=== PATIENT | female | born 1970 | race African-American/Black ===

== ENCOUNTER 2024-06-26 00:16 | Inpatient (IN) | payer SELFPAY ==
[~2024-06-26] VITALS: Ht 167.6 cm; Wt 76.8 kg
[2024-06-26 00:28] VITALS: O2SAT 100
[2024-06-26 01:51] LABS: BASOPHILS % 0.8 % (0.0-2.0); EOSINOPHILS % 1.5 % (0.0-5.0); HEMATOCRIT. 42.3 % (36.0-48.0); HEMOGLOBIN. 14.2 g/dL (12.0-16.0); LYMPHOCYTES % 21.3 % (20.0-50.0); MEAN CORPUSCULAR HEMOGLOBIN 30.2 pg (28.0-32.0); MEAN CORPUSCULAR HGB CONC 33.5 g/dL (31.0-37.0); MEAN PLATELET VOLUME 8.8 fl (7.4-10.4); MONOCYTES % 6.3 % (2.0-8.0); NEUTROPHILS % 70.1 % (40.0-76.0); PLATELET 301 x1000/uL (130-400); RED CELL DISTRIBUTION WIDTH 13.6 % (11.6-14.6)
[2024-06-26 01:58] LABS: CHLORIDE 102 mEq/L (98-107); POTASSIUM 3.6 mEq/L (3.5-5.1); SODIUM 143 mEq/L (136-145)
[2024-06-26 01:59] LABS: CARBON DIOXIDE 29 mEq/L (21-32)
[2024-06-26 02:05] LABS: CREATININE 1.3 mg/dL (0.6-1.0); GLUCOSE 68 mg/dL (70-105); UREA NITROGEN BLOOD 23 mg/dL (9-23)
[2024-06-26 02:20] LABS: TROPONIN I HIGH SENSITIVITY 52 ng/L (3.0-34)
[2024-06-26] MEDS ORDERED: HYDROCODONE/ACETAMINOPHEN 5/325MG TABLET PO PRN (03:15)
[2024-06-26] MEDS ORDERED: CLONIDINE 0.1MG TABLET PO PRN (03:15)
[2024-06-26] MEDS ORDERED: GUAIFENESIN 200MG/10ML SUGAR FREE UDC PO PRN (03:15)
[2024-06-26] MEDS ORDERED: DOCUSATE SODIUM 100MG CAPSULE PO PRN (03:15)
[2024-06-26] MEDS ORDERED: IPRATROPIUM/ALBUTEROL 0.5-3(2.5)MG/3ML NEB HHN PRN (03:15)
[2024-06-26] MEDS ORDERED: MAGNESIUM/ALUMINUM HYDROXIDE/SIMETHICONE 30ML UDC PO PRN (03:15)
[2024-06-26] MEDS ORDERED: ONDANSETRON HCL 4MG/2ML INJ IV PRN (03:15)
[2024-06-26] MEDS ORDERED: NA PHOS,M-B/NA PHOS,DI-BA ENEMA 118ML PR PRN (03:15)
[2024-06-26] MEDS ORDERED: ACETAMINOPHEN 325MG TABLET PO PRN ×2 (03:15)
[2024-06-26 04:24] LABS: CHLORIDE 103 mEq/L (98-107); POTASSIUM 3.5 mEq/L (3.5-5.1); SODIUM 143 mEq/L (136-145)
[2024-06-26 04:25] LABS: CARBON DIOXIDE 27 mEq/L (21-32)
[2024-06-26 04:30] LABS: CREATININE 1.1 mg/dL (0.6-1.0); GLUCOSE 118 mg/dL (70-105)
[2024-06-26 04:31] LABS: LDL CHOLESTEROL 89 mg/dL (5-100); TRIGLYCERIDE 213 mg/dL (0-150); UREA NITROGEN BLOOD 23 mg/dL (9-23)
[2024-06-26 04:32] LABS: ALBUMIN 4.5 g/dL (3.2-4.8); CHOLESTEROL 156 mg/dL (<200); HDL CHOLESTEROL 41 mg/dL (>65); PHOSPHORUS 3.9 mg/dL (2.5-4.9)
[2024-06-26 04:35] LABS: FOLIC ACID (FOLATE) SERUM 15.55 ng/mL (>5.38)
[2024-06-26 04:36] LABS: T4 FREE 1.47 ng/dL (0.89-1.76); THYROID STIMULATING HORMONE 0.53 uIU/mL (0.55-4.78); VITAMIN B12 SERUM 253 pg/mL (211-911)
[2024-06-26 05:09] LABS: TROPONIN I HIGH SENSITIVITY 59 ng/L (3.0-34)
[2024-06-26] MEDS ORDERED: DEXTROSE 50% WATER 50ML SYRINGE IV PRN (05:45)
[2024-06-26] MEDS: BLOOD SUGAR DIAGNOSTIC STRIP TEST SCH (07:48)
[2024-06-26 08:00] VITALS: BP_SYST 120; BP_SYST 128; BP_SYST 96; BP_DIAS 58; BP_DIAS 65; BP_DIAS 67; PULSE 86; RESP 18; TEMP 36.5; O2SAT 98
[2024-06-26] MEDS: PANTOPRAZOLE 40MG DR TABLET PO SCH (08:11)
[2024-06-26] MEDS: ALLOPURINOL 100 MG TABLET PO SCH (08:11)
[2024-06-26 08:12] VITALS: PULSE 86
[2024-06-26] MEDS: CARVEDILOL 3.125 MG TABLET PO SCH (08:12)
[2024-06-26] MEDS: ENOXAPARIN 40MG/0.4ML SYR SUBCUT SCH (08:12)
[2024-06-26] MEDS: LACTATED RINGERS 1,000 ML IV SCH (08:13)
[2024-06-26] MEDS ORDERED: LOSA50TA41 PO (09:43)
[2024-06-26] MEDS ORDERED: SPIR25TA6 PO (09:43)
[2024-06-26] MEDS ORDERED: FURO-151 PO (09:43)
== END 2024-06-26 10:00 | disposition left against medical advice (07) | DRG 48 ==
LOC: ER 00:16 → 6WST 02:58 → EDBEDREQTM 03:00 → EDBEDREQ 03:00
PROVIDERS: ADMIT Internal Medicine; ATTEND Internal Medicine
DX: G90.89 Other disorders of autonomic nervous system (principal); I21.A1 Myocardial infarction type 2; I50.22 Chronic systolic (congestive) heart failure; I11.0 Hypertensive heart disease with heart failure; E11.65 Type 2 diabetes mellitus with hyperglycemia; I25.10 Atherosclerotic heart disease of native coronary artery without angina pectoris; Z53.29 Procedure and treatment not carried out because of patient's decision for other reasons; I48.91 Unspecified atrial fibrillation; M10.9 Gout, unspecified; E11.9 Type 2 diabetes mellitus without complications; Z79.84 Long term (current) use of oral hypoglycemic drugs; Z79.899 Other long term (current) drug therapy
CPT/HCPCS: 36415; 71045; 80048; 80061; 82040; 82607; 82746; 82962; 83605; 83735; 83880; 84100; 84439; 84443; 84484; 85025; 85379; 93005; 99285; J1650; J7120